=== PATIENT | male | born 1955 | race Caucasian/White ===

== ENCOUNTER → 2021-09-22 | Day surgery (SDC) | payer MEDICARE, OTHER ==
[~2021-09-22] VITALS: Ht 188 cm; Wt 127.0 kg
[~2021-09-22] MED LIST: ALLOPURINOL 10100 MG PO; AMARYL2 MG PO; ASPIRIN EC81 MG PO; BUPROPION XL150 MG PO; CLARITIN10 MG PO; CLONIDINE HCL0.1 MG PO; HYDROXYZINE HCL25 MG PO; LISINOPRIL40 MG PO; LOPRESSOR25 MG PO; METFORMIN HCL1000 MG PO; PANTOPRAZOLE SO40 MG PO; PREDNISONE10 M1 PO; ROSUVASTATIN CA10 MG PO; SERTRALINE HCL25 MG PO; TYLENOL ARTHRI650 MG PO
== END | disposition home or self-care (01) ==
LOC: FAS 08:44
DX: Z12.11 Encounter for screening for malignant neoplasm of colon (principal); D12.3 Benign neoplasm of transverse colon; R13.10 Dysphagia, unspecified; K21.9 Gastro-esophageal reflux disease without esophagitis; K44.9 Diaphragmatic hernia without obstruction or gangrene; K57.30 Diverticulosis of large intestine without perforation or abscess without bleeding; K22.89 Other specified disease of esophagus; I25.10 Atherosclerotic heart disease of native coronary artery without angina pectoris; E11.9 Type 2 diabetes mellitus without complications; I10 Essential (primary) hypertension; E78.5 Hyperlipidemia, unspecified; Z79.82 Long term (current) use of aspirin
CPT/HCPCS: J2250; J2704; J7120